=== PATIENT | female | born 1955 | race Caucasian/White ===

== ENCOUNTER → 2024-01-17 | Outpatient (CLI) | payer MEDICARE, BC, SELFPAY ==
[2024-01-17 15:06] LABS: Absolute Lymphocyte Count 1.56 X10^3/uL (0.83-4.51); Absolute Neutrophil Count 3.3 X10^3/uL (2.0-7.7); Basophil# 0.05 X10^3/uL; Basophil% 0.8 % (0-1); Eosinophil# 0.07 X10^3/uL; Eosinophils% 1.2 % (0-5); Hematocrit 42.5 % (37-47); Hemoglobin 13.8 g/dL (12.0-15.0); Lymphocyte # 1.56 X10^3/ul (0.83-4.51); Lymphocyte % 26.3 % (19-41); Mean Corp Hgb Conc 32.5 g/dL (32-36); Mean Corpuscular Volume 95.5 fL (81-99); Monocyte# 0.92 X10^3/uL; Monocyte% 15.5 % (0-10); NRBC Flagged by Analyzer 0 % (0-5); Neutrophil # 3.31 X10^3/uL (2.7-7.7); Neutrophil % 55.7 % (47-70); Platelet Count 363 K/mm3 (150-450); RBC Distribution Width CV 14.3 % (11.6-14.6); RBC Distribution Width SD 50.4 fl (35.1-43.9); Red Blood Count 4.45 M/mm3 (4.2-5.4); White Blood Count 5.9 K/mm3 (4.4-11.0)
[2024-01-17 15:43] LABS: ALB/GLOB Ratio 0.8 RATIO (0.9-2.4); AST(SGOT) 23 U/L (15-37); Alanine Aminotransfer ALT/SGPT 23 U/L (13-56); Albumin, Serum 3.7 g/dL (3.2-5.0); Alkaline Phosphatase 117 U/L (45-117); Anion Gap 10 (5-15); BUN 12 mg/dL (7-18); BUN/Creat Ratio 12.6 RATIO (10-20); Calcium,Total 9.3 mg/dL (8.5-10.1); Chloride 101 mmol/L (98-107); Creatinine, Serum 0.95 mg/dL (0.55-1.02); EST Glomerular Filtration Rate 62 mL/min (>60); Est Glom Filt Rate - Afr Amer 75 mL/min (>60); Globulin 4.4 g/dL (2.2-4.2); Glucose 134 mg/dL (74-106); Potassium 3.9 mmol/L (3.5-5.1); Protein, Total 8.1 g/dL (6.4-8.2); Sodium Level 137 mmol/L (136-145)
[2024-01-19 15:09] LABS: Carbohydrate Ag 19-9 2261 7 U/mL (0-35)
== END | disposition home or self-care (01) ==
LOC: LAB 14:07
PROVIDERS: PCP Student in an Organized Health Care Education/Training Program; Referring Provider Student in an Organized Health Care Education/Training Program; Visit Provider Student in an Organized Health Care Education/Training Program
DX: D49.0 Neoplasm of unspecified behavior of digestive system (principal); R10.9 Unspecified abdominal pain
CPT/HCPCS: 36415; 80053; 85025; 86301

== ENCOUNTER → 2024-01-19 | Outpatient (CLI) | payer MEDICARE, BC, SELFPAY ==
[2024-01-23 03:06] LABS: Pancreatic Elastase, Fecal 559 (>200)
[2024-01-24 16:10] LABS: Calprotectin, Stool 49 ug/g (0-120)
== END | disposition home or self-care (01) ==
LOC: LABSPEC 15:16
PROVIDERS: PCP Student in an Organized Health Care Education/Training Program; Referring Provider Student in an Organized Health Care Education/Training Program; Visit Provider Student in an Organized Health Care Education/Training Program
DX: K58.9 Irritable bowel syndrome, unspecified (principal); R10.9 Unspecified abdominal pain
CPT/HCPCS: 36415; 82653; 83630; 83993

== ENCOUNTER 2024-05-28 07:22 | Inpatient (IN) | payer MEDICARE, BC, MEDICAID, SELFPAY ==
--- NOTE | 2024-05-16 21:28 | PCM.HP.BLA ---
History and Physical History and Physical Patient Name: Humera Leone : 1955From:? EL WATSON PA-C DATE OF PRE-OPERATIVE EXAM: 05/16/2024 DATE OF SURGERY:? 05/28/2024 SCHEDULED PROCEDURE:? Direct anterior right total hip arthroplasty HISTORY OF PRESENT ILLNESS: Preoperative history and physical exam was performed on May 16, 2024.? This is a 68-year-old female who presented with her sister who is power of real estate associate attorney.? She has had ongoing pain for many years in the right hip.? She has history of previous knee replacement approximately 12 years ago.? Patient is currently at correction at [facility].? Patient's pain can reach 7-8/10 with activities.? Patient continues to complain of groin pain on the right.? She gets pain into her thigh.? Patient does have history of neuropathy that runs in the family.? She gets numbness in her toes which comes and goes.? Patient can perform most tasks but needs reminders and nursing staff helps with her bathing.? She is able to feed a dress herself.? Patient denies past history of surgery on her right hip.? Pain is increased with walking, going up and down steps, sitting.? Patient has attempted conservative measures including physical therapy, cold therapy, heat therapy, TENS unit with only temporary relief.? She has tried muscle relaxers and pain medications including Tylenol and tramadol.? She is currently getting tramadol from her primary care provider.? She engages in daily walking as much as she can and stationary bike.? Patient has medical history pertinent for Alzheimer's dementia, history of DVT and pulmonary embolism, anxiety, thyroid disease, history of bradycardia, heart murmur, and history of toxic metabolic encephalopathy.? Her previous left knee arthroplasty was in 2008.? She has had surgical clearance from the callisthenics instructor Dr. Guzman, primary care physician Dr. Jean.? Primary care provider has instructed the patient to stop the Eliquis 2 days prior to surgery.? We did reach out to the computer numerical control programmer in which they will not give clearance but states her TSH has been within normal limits.? She denies any recent chest pain, short of breath, fevers chills or recent infections.? She is currently on Eliquis for history of DVT and pulmonary embolism. REVIEW OF SYSTEMS: Review Of Systems: Constitutional: Denies change in appetite, fever and weight change. Cardiovasular: Reports heart murmur, but denies chest pain and irregular heartbeat. Respiratory: Reports shortness of breath, but denies cough, pneumonia, tuberculosis and wheezing. Gastrointestinal: Denies constipation, diarrhea, heartburn, nausea, rectal itching, bloody stools and vomiting. Genitourinary: Reports frequent UTIs. Musculoskeletal: Reports pain and trouble walking, but denies leg swelling and weakness. Skin: Denies Raynaud's, history of shingles and tattoo. Neurological: Denies ambulatory dysfunction, dizziness, numbness/tingling and tremor. Psychiatric: Reports anxiety, insomnia and stress. Hematologic/Lymphatic: Denies anemia, bleeding/bruising tendency and past transfusion. Reviewed, no changes. PAST MEDICAL HISTORY: Advance Care Plan: Other Directive, POA Effective Date: 01/28/2023 Resuscitation, DNR Effective Date: 01/28/2023 Past Medical History: Medical Problems: Alzheimer's, Arthritis, Dementia, Depression, History Of Blood Clots/ DVT, Pulmonary Embolism, Thyroid Disease, anxiety bradycardia - history of heart murmur, toxic metabolic encephalopathy Accidents: None Surgical Hx: Hysterectomy - 1999 Knee Replacement Lt - 2008 Anesthesia Complications: None Assistive Devices: Cane Reviewed and updated. SOCIAL HISTORY: Social History: Marital: .Occupation: Retired Retired -.Work Status: Retired.Hand Dominance: Right-handed. Personal Habits:? Cigarette Use: Never Smoked Cigarettes.Smokeless Tobacco: Never Used Smokeless Tobacco.E-Cigarette Use: Never used.Alcohol: Denies use.Drug Use: Denies Use.Enjoy Exercising: Never Exercises. Reviewed, no changes. VITALS: Ht: 66.5 Wt: 210lb Wt k.256 BMI: 33.4 BP: 128/80 Pulse: 81 Resp: 17 T: 98.0 T: 36.7C Pain Level: 7 O2SatR: 96 ALLERGIES: Penicillin V Morphine MEDICATIONS: QC Tumeric Complex 500 mg daily, Biotin 5000 mcg daily, Tramadol HCL 50 mg 1-2 by mouth every 6 hours as needed pain, Tylenol Extra Strength 500 mg 2 by mouth every 8 hours, Nystatin [id number] Unit/GM as needed, Lexapro 20 mg daily, Claritin 10 mg as needed, Eliquis 5 mg 1 by mouth twice a day, Loperamide HCL 2 mg no more than 4 tabs in 24 hours, Duloxetine HCL 60 mg 1 by mouth every day, Levothyroxine Sodium 150 mcg daily, Lidocaine 4 % may leave on for up to 12 hours, Systane 0.4-0.3 % daily, Aricept 5 mg 1 po qdaily, Vitamin D 25 mcg (1000 Ut) daily, Fluoxetine HCL 20 mg 1 by mouth every day, Simethicone 125 mg daily, Ondansetron HCL 4 mg prn PRE-OP EXAM: General appearance:NORMAL? Other: Eyes: Conjunctivae and lids: NORMAL? Pupils: ERR Ears, Nose, Mouth, and Throat: NORMAL? Other: Inspection of lips, teeth and gums: NORMAL?? Other: Neck: Examination of neck: no masses noted. Respiratory: Assessment of respiratory effort: NORMAL?? Other: ? Auscultation of lungs: clear to auscultation no wheezes, rhonchi or rales. Cardiovascular:? Auscultation of heart: regular rate and rhythm, positive systolic murmur PHYSICAL EXAMINATION: On exam patient does ambulate with antalgic gait with use of cane.? Left hip flexion 60 with obligatory external rotation, external rotation 45 and 15 internal rotation.? She has significant stiffness with the right hip.? Increased pain with range of motion.? Sensation intact to light touch. IMAGING STUDIES: Previous x-rays of the right hip reveal joint space narrowing, subchondral sclerosis, osteophyte formation consistent with severe stage IV bone on bone erosive osteoarthritis.? Patient also has severe stage IV bone on bone left hip osteoarthritis. IMPRESSION: 1.? Severe right hip osteoarthritis 2.? Alzheimer's dementia 3.? History of DVT/pulmonary embolism 4.? Thyroid disease 5.? Anxiety 6.? History of bradycardia 7.? Heart murmur 8.? History of toxic metabolic encephalopathy 9.? Obesity with BMI 33.4 PLAN: Dr. Americo Leblanc did discuss and review with the patient all treatment options including surgical versus nonsurgical options.? I will continue plan established by Dr. Americo Leblanc.? Patient does wish to proceed with the above-stated procedure.? Potential risks, benefits, and complications of the procedure were discussed in detail including but not limited to , infection, nerve and blood vessel damage, persistent pain, numbness, tingling, paresthesias, blood clot, pulmonary embolism, and requirement for possible further surgery.? The patient expressed full understanding and has no further questions for the doctor.? Patient does agree to proceed with the above-stated procedure and has signed the surgery consent form. POST-OP MEDICATION PLAN: Pain Medications: Postoperative pain regimen will be initiated by Dr. Americo Leblanc in the hospital.? We are unable to use nonsteroidal anti-inflammatories due to the anticoagulation.? We are reaching out to the primary care provider for postoperative pain management.? Patient has been getting tramadol from the PCP for pain control.? We will determine if they would like to manage the pain or orthopedics.? She will bring Walker to the hospital.? Care management team will be in place for appropriate and safe discharge planning.? Patient's sister who is power of real estate associate attorney states that she will not be returning to [facility] and will have something set up after surgery.? We discussed her dementia in which this could also be a risk for postoperative confusion.? They did voice understanding.? Patient will continue to follow our nutrition protocol. ? DVT Prophylaxis Plan: Primary care physician recommend stopping the Eliquis 2 days prior to surgery.? This will be resumed postoperative day #1.? She has history of DVT/pulmonary embolism.? We will also utilize SHERLY hose and ambulation for prevention of DVT. This dictation was created using voice recognition software. Phonetic and/or grammatical errors may exist. ___? I have re-examined the patient.? There are no clinical changes since date of exam. ___? See progress notes for changes. ___? Dictated on admission Date: ? Time: Signature:
--- NOTE | 2024-05-17 16:22 | PAT.ANESEVAL ---
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 When Was Last Pacemaker Check QUESTION #4 FULL TEXT: You/Your Family Experience fever (hyperthermia) with Anesthesia Last Oral Intake Last Oral intake: Last Oral Intake NPO since Meds taken in AM with sips of water? Meds patient instructed to take am of surgery PONV PONV - planishing hammer operator: PONV - planishing hammer operator Female Yes 05/17/24 11:11 HX of Motion Sickness No 05/17/24 11:11 HX of N/V After Surgery Yes 05/17/24 11:11 Non-Smoker Yes 05/17/24 11:11 Duration of Surgery greater Yes 05/17/24 11:11 than 60 minutes Number of Risk Factors 4 05/17/24 11:11 PONV Score Severe Risk 05/17/24 11:11 Respiratory Assessment Respiratory Assessment - planishing hammer operator: Respiratory Tract Infection Hx - planishing hammer operator Hx Respiratory Tract Infection No 05/17/24 11:11 STOP Sleep Apnea STOP Sleep Apnea - planishing hammer operator: STOP Sleep Apnea - planishing hammer operator Hx Hypertension Yes 05/17/24 11:11 Hx Sleep Apnea Yes 05/17/24 11:11 CPAP No 05/17/24 11:11 BIPAP No 05/17/24 11:11 Do you snore loudly (louder than talking or can be heard Do you often feel tired/ fatigued/ sleepy during daytime? Has anyone observed you stop breathing during sleep? STOP Results Positive 05/17/24 11:11 QUESTION #5 FULL TEXT : Do you snore loudly (louder than talking or can be heard through closed doors)? 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 Specify any problems Hx of Preganancy in last 3 N/A 05/17/24 11:11 Months Nurse Filling Out Transfusion NBUCHER 05/17/24 11:11 & Questions: Date: 05/17/24 05/17/24 11:11 Time: 11:12 05/17/24 11:11 Patient unable to answer at this time (ie. confused, unrespo /Reproduction History /Reproductive History - planishing hammer operator: /Reproductive Hx- planishing hammer operator Hx Now No 05/17/24 11:11 Gestational Age (in weeks): EDC: Hx Hx Para Hx Section SAB No 05/17/24 11:11 [facility] Medical History (Updated 05/17/24 @ 11:23 by Pilar Genao) Wears glasses Walker as ambulation aid Hypertension History of echocardiogram Cardiology follow-up encounter Post-menopausal History of Clostridium difficile infection Depression Anxiety Thyroid disease Uses wheelchair Ambulates with cane Arthritis Fatty liver Pulmonary embolism DVT (deep venous thrombosis) Back pain Heartburn Non-smoker Asthma COPD (chronic obstructive pulmonary disease) Shortness of breath on exertion Leg cramps History of pain when walking History of sick sinus syndrome History of rheumatic fever Allergic rhinitis Weakness Bradycardia Essential hypertension Obstructive sleep apnea Insomnia Alzheimer disease Dementia Hyperlipidemia Hypothyroidism Other toxic encephalopathy Home Medications ?Medication ?Instructions ?Recorded ?Last Taken ?Type acetaminophen 325 mg capsule 325 mg PO BID PRN pain 01/05/24 Unknown History acetaminophen 500 mg tablet 500 mg PO BID 01/05/24 Unknown History apixaban 5 mg tablet (Eliquis) 5 mg PO BID 01/05/24 Unknown History cholecalciferol (vitamin D3) 25 25 mcg PO DAILY 01/05/24 Unknown History mcg (1,000 unit) capsule (Vitamin D3) donepezil 5 mg tablet 5 mg PO DAILY 01/05/24 Unknown History loratadine 10 mg tablet 10 mg PO DAILY 01/05/24 Unknown History (Allerclear) peg 400-propylene glycol (PF) 0.4 2 drp RIGHT EYE BID 01/05/24 Unknown History %-0.3 % eye drops in a dropperette (Systane (PF)) tramadol 50 mg tablet 50 mg PO BID 01/05/24 Unknown History levothyroxine 150 mcg tablet 150 mcg PO DAILY 03/01/24 Unknown History fluoxetine 20 mg capsule 20 mg PO DAILY 05/17/24 Unknown History simethicone 125 mg capsule (Gas 125 mg PO 4X/DAY 05/17/24 Unknown History Relief (simethicone)) Allergy/AdvReac Type Severity Reaction Status Date / Time morphine Allergy Unknown Other Verified 05/17/24 11:10 Penicillins Allergy Unknown Other Verified 05/17/24 11:10 Surgical History History of cardiac catheterization History of left knee replacement History of hysterectomy Social History Smoking Status: Never smoker Audit: Pertinent Findings Pertinent Findings EKG Perinent findings: May 11, 2024. Normal sinus rhythm. Echo (EF%) pertinent findings: January 12, 2024. Ejection fraction is 55 to 60%. No regional wall motion abnormality seen. No aortic stenosis seen. Consult pertinent findings: February 16, 2024. 1. Abnormal stress test-status post heart cath. Patient essentially had a false positive stress test. 2. Preop exam-patient is cleared from a cardiac standpoint. Recommendation Anesthesia Recommendation Anesthesia recommendation: OPTIMIZED for anesthesia
[2024-05-28] VITALS (16 sets, daily range): BP systolic 116–170; BP diastolic 66–100; PULSE 78–103; RESP 6–18; TEMP 36.4–37.3; O2SAT 4–99; BMI 33.0
[2024-05-28] MEDS: Lactated Ringers 1,000 ML 999 ML IV (08:36)
[2024-05-28] MEDS: Gabapentin 600 MG Tablet PO (08:36)
[2024-05-28] MEDS: Acetaminophen 500 MG Tablet 1000 MG PO ×2 (08:36→22:25)
[2024-05-28] MEDS: Celecoxib 200 MG Capsule 400 MG PO (08:36)
[2024-05-28 09:25] LABS: Magnesium 2.2 mg/dL (1.5-2.2)
--- NOTE | 2024-05-28 09:55 | PCM.PRE.AN2 ---
ASA Classification* ASA Classification ASA Classification: 3 Assessment & Plan Anesthesia* Anesthesia Assessment Anesthesia Assessment: Discussed sedation and/or anesthesia options, risks, benefits, and alternatives with patient/parents/legal guardian/POA. Questions invited. The patient/parents/legal guardian/POA seems to understand and agrees to proceed with anesthesia plan. Reviewed the physical assessment, medical history, allergy history and patient home medications list prior to surgery/procedure/anesthetic and documented any changes. Performed airway and anesthesia risk assessments. Anesthesia Type Anesthesia Type: General History Source History Obtained from:: Patient and Chart Anesthesia Focused Assessment* Temperature: 99.1 F Pulse Rate: 83 Blood Pressure: 126/77 Respiratory Rate: 17 Pulse Ox: 96 Oxygen Delivery Method: Room Air Airway Assessment Mouth opens: >3 cm Mallampati Score: I Teeth Condition: Intact Neck Range of motion (ROM): Limited ROM (Slight decrease in extension) Focused Labs Anesthesia Preop lab: CBC WBC 5.9 K/mm3 (4.4-11.0) 01/17/24 14:12 01/17/24 RBC 4.45 M/mm3 (4.2-5.4) 01/17/24 14:12 01/17/24 Hgb 13.8 g/dL (12.0-15.0) 01/17/24 14:12 01/17/24 Hct 42.5 % (37-47) 01/17/24 14:12 01/17/24 Plt Count 363 K/mm3 (150-450) 01/17/24 14:12 01/17/24 CHEMISTRY Potassium 3.9 mmol/L (3.5-5.1) 01/17/24 14:12 01/17/24 Sodium 137 mmol/L (136-145) 01/17/24 14:12 01/17/24 Magnesium 2.2 mg/dL (1.5-2.2) 05/28/24 08:21 05/28/24 BUN 12 mg/dL (7-18) 01/17/24 14:12 01/17/24 Creatinine 0.95 mg/dL (0.55-1.02) 01/17/24 14:12 01/17/24 Glucose 134 mg/dL (74-106) H 01/17/24 14:12 11/05/24 COAG Pre-Assessment Diagnosis/Proposed Procedure Planned Operative Procedure(s): ANTERIOR RIGHT TOTAL HIP ARTHROPLASTY Anesthesia History 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 When Was Last Pacemaker Check QUESTION #4 FULL TEXT: You/Your Family Experience fever (hyperthermia) with Anesthesia Last Oral Intake Last Oral intake: Last Oral Intake NPO since 05:00 05/28/24 08:31 Meds taken in AM with sips of water? Meds patient instructed to take am of surgery Any additional information?: Yes NPO since: 00:00 PONV PONV - jet blade polisher: PONV - jet blade polisher Female Yes 05/17/24 11:11 HX of Motion Sickness No 05/17/24 11:11 HX of N/V After Surgery Yes 05/17/24 11:11 Non-Smoker Yes 05/17/24 11:11 Duration of Surgery greater Yes 05/17/24 11:11 than 60 minutes Number of Risk Factors 4 05/17/24 11:11 PONV Score Severe Risk 05/17/24 11:11 Height & Weight Height & Weight: Anesthesia: Height & Weight Height 5 ft 7 in 05/28/24 08:31 Weight: 95.7 kg 05/28/24 08:31 Body Mass Index (BMI) 33.0 05/28/24 08:31 Respiratory Assessment Respiratory Assessment - jet blade polisher: Respiratory Tract Infection Hx - jet blade polisher Hx Respiratory Tract Infection No 05/17/24 11:11 STOP Sleep Apnea STOP Sleep Apnea - jet blade polisher: STOP Sleep Apnea - jet blade polisher Hx Hypertension Yes 05/17/24 11:11 Hx Sleep Apnea Yes 05/17/24 11:11 CPAP No 05/17/24 11:11 BIPAP No 05/17/24 11:11 Do you snore loudly (louder than talking or can be heard Do you often feel tired/ fatigued/ sleepy during daytime? Has anyone observed you stop breathing during sleep? STOP Results Positive 05/17/24 11:11 QUESTION #5 FULL TEXT : Do you snore loudly (louder than talking or can be heard through closed doors)? 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 Specify any problems Hx of Preganancy in last 3 N/A 05/17/24 11:11 Months Nurse Filling Out Transfusion NBUCHER 05/17/24 11:11 & Questions: Date: 05/17/24 05/17/24 11:11 Time: 11:12 05/17/24 11:11 Patient unable to answer at this time (ie. confused, unrespo /Reproduction History /Reproductive History - jet blade polisher: /Reproductive Hx- jet blade polisher Hx Now No 05/17/24 11:11 Gestational Age (in weeks): EDC: Hx Hx Para Hx Section SAB No 05/17/24 11:11 Active Medications Active Medications: Current Medications Generic Name Dose Route Start Last Admin Trade Name Freq PRN Reason Stop Dose Admin Acetaminophen 1,000 mg 05/28/24 10:00 05/28/24 08:36 Acetaminophen 500 Mg Tablet PO 05/28/24 10:01 1,000 mg X1 ONE Administration Acetaminophen 1,000 mg 05/28/24 14:00 Acetaminophen 500 Mg Tablet PO Q8 CHRIS Apixaban 5 mg 05/29/24 07:00 Apixaban 5 Mg Tablet PO BID CHRIS Celecoxib 400 mg 05/28/24 10:00 05/28/24 08:36 Celecoxib 200 Mg Capsule PO 05/28/24 10:01 400 mg X1 ONE Administration Tranexamic Acid 2,000 mg/ 0 mg 05/28/24 10:00 Sodium Chloride 100 ml OPERA.SITE 05/28/24 10:01 X1 ONE Sodium Chloride 77.4 ml/ 0 ml 05/28/24 10:00 Ropivacaine 200 mg/ OPERA.SITE 05/28/24 10:01 Epinephrine HCl 0.6 mg/ X1 ONE Ketorolac Tromethamine 30 mg/ Morphine Sulfate 5 mg Dexamethasone Sodium Phosphate 10 mg 05/28/24 10:00 Dexamethasone 10 Mg/Ml Vial IV 05/28/24 10:01 X1 ONE Doxycycline Monohydrate 100 mg 05/29/24 13:00 Doxycycline 100 Mg Capsule PO BID [facility] Enteral Nutritional Formula 237 ml 05/28/24 08:00 Ensure Surgery 237 Ml Liquid PO TIDCM [facility] Famotidine 20 mg 05/28/24 10:00 Famotidine 20 Mg Tablet PO DAILY [facility] Gabapentin 600 mg 05/28/24 10:00 05/28/24 08:36 Gabapentin 600 Mg Tablet PO 05/28/24 10:01 600 mg X1 ONE Administration Lactated Ringer's 1,000 mls @ 999 mls/hr 05/28/24 10:00 05/28/24 08:36 IV 05/28/24 11:00 999 mls/hr .Q1H1M CHRIS Administration Cefazolin Sodium 2 gm/ N/A 20 mls @ 400 mls/hr 05/28/24 10:00 IV 05/28/24 10:02 PREOP ONE Cefazolin Sodium 1 gm in 50 mls @ 150 mls/hr 05/28/24 14:00 IV 05/28/24 22:19 Q8 [facility] Insulin Human Lispro 1 - 6 unit 05/28/24 10:00 Insulin Lispro 100 Unit/Ml Insuln.Pen SC Q4H PRN PRN BG>/= 180, SEE PROTOCOL Protocol Ketorolac Tromethamine 15 mg 05/28/24 07:21 Ketorolac 15 Mg/Ml Vial IV 05/30/24 07:24 Q6H PRN PRN Pain Score 1-5 Meloxicam 7.5 mg 05/30/24 10:00 Meloxicam 7.5 Mg Tablet PO BID [facility] Morphine Sulfate 2 - 4 mg 05/28/24 07:21 Morphine 2 Mg/Ml Syringe IV Q2H PRN PRN Pain Score 4-10 Ondansetron HCl 4 mg 05/28/24 07:21 Ondansetron 4 Mg/2 Ml Vial IV Q8H PRN PRN NAUSEA Oxycodone HCl 5 - 10 mg 05/28/24 07:21 Oxycodone 5 Mg Tablet PO Q4H PRN PRN Pain Score 4-10 Promethazine HCl 12.5 mg 05/28/24 07:21 Promethazine 25 Mg/Ml Syringe IM Q6H PRN PRN NAUSEA/VOMITING Protocol Senna/Docusate Sodium 2 tablet 05/28/24 10:00 Senna/Docusate Sodium 1 Tablet PO BID [facility] Medical History Wears glasses Walker as ambulation aid Hypertension History of echocardiogram Cardiology follow-up encounter Post-menopausal History of Clostridium difficile infection Depression Anxiety Thyroid disease Uses wheelchair Ambulates with cane Arthritis Fatty liver Pulmonary embolism DVT (deep venous thrombosis) Back pain Heartburn Non-smoker Asthma COPD (chronic obstructive pulmonary disease) Shortness of breath on exertion Leg cramps History of pain when walking History of sick sinus syndrome History of rheumatic fever Allergic rhinitis Weakness Bradycardia Essential hypertension Obstructive sleep apnea Insomnia Alzheimer disease Dementia Hyperlipidemia Hypothyroidism Other toxic encephalopathy Home Medications ?Medication ?Instructions ?Recorded ?Last Taken ?Type acetaminophen 325 mg capsule 325 mg PO BID PRN pain 01/05/24 05/27/24 History acetaminophen 500 mg tablet 500 mg PO BID 01/05/24 05/27/24 History apixaban 5 mg tablet (Eliquis) 5 mg PO BID 01/05/24 Unknown History cholecalciferol (vitamin D3) 25 25 mcg PO DAILY 01/05/24 05/27/24 History mcg (1,000 unit) capsule (Vitamin D3) donepezil 5 mg tablet 5 mg PO DAILY 01/05/24 05/27/24 History loratadine 10 mg tablet 10 mg PO DAILY 01/05/24 Unknown History (Judah) peg 400-propylene glycol (PF) 0.4 2 drp RIGHT EYE BID 01/05/24 05/27/24 History %-0.3 % eye drops in a dropperette (Systane (PF)) tramadol 50 mg tablet 50 mg PO BID 01/05/24 05/27/24 History levothyroxine 150 mcg tablet 150 mcg PO DAILY 03/01/24 05/27/24 History fluoxetine 20 mg capsule 20 mg PO DAILY 05/17/24 05/27/24 History simethicone 125 mg capsule (Gas 125 mg PO 4X/DAY 05/17/24 05/27/24 History Relief (simethicone)) donepezil 10 mg tablet 5 mg PO DAILY 05/28/24 05/27/24 History Allergy/AdvReac Type Severity Reaction Status Date / Time morphine Allergy Unknown Other Verified 05/17/24 11:10 Penicillins Allergy Unknown Other Verified 05/17/24 11:10 Surgical History History of cardiac catheterization History of left knee replacement History of hysterectomy Social History Smoking Status: Never smoker Review of Systems (Anesthesia) ROS Narrative System reviewed and no additional complaints, except as documented.
--- NOTE | 2024-05-28 10:00 | FEM._PTH ---
PATIENT: KWABENA SANCHEZ LOC: [facility] U#:[id number] AGE/SX: 68/F ROOM: [facility] RE05/29/[address]: Dr. Alexandru Holley DO : 1955 BED: 1 DIS: 05/30/2024 SPEC #: [id number] RECD: 05/29/24 10:14 STATUS: CORA REQ #: [id number] VINH: 05/28/24 10:[address]: Americo Leblanc DEPT: SURGICAL PATHOLOGY RECD BY: Jairo Vásquez ENTERED: 05/29/24 10:15 SP TYPE: FEM HEAD OTHR DR: DO Dr. Alexandru Patel DO Dr. Rohini Kalisetti, MD Tissues: A - Hip, NOS Procedures: Decalcification bone/plaque Surgery Specimen Level III Comments: @ Ordering doctor for DEC edited from to @ by ANTONIO at 05/29/24 1016 @ Ordering doctor for SUIV edited from to @ by ANTONIO at 05/29/24 1016 @ Ordering doctor for SUV edited from to @ by ANTONIO at 05/29/24 1016 @ Submitting doctor edited from to @ by ANTONIO at 05/29/24 1016 HEADER OPERATION: ERAS, anterior right total hip arthroplasty PRE-OP DIAGNOSIS: Severe right hip osteoarthritis TISSUE SUBMITTED: A- Right femoral head MICROSCOPIC DIAGNOSIS A. Femoral head, right, total hip arthroplasty: * Articular bone with reactive/degenerative changes. * Trilineage hematopoiesis. MICROSCOPIC DESCRIPTION Slides are reviewed. GROSS DESCRIPTION A. Received in fixative is one container labeled with the patient's name and designated Right femoral head. The specimen consists of a femoral head measuring 5.5 x 5.5 x 4.5cm. The cartilaginous surface is worn and eburnated. Also present in the container are multiple fragments of bone measuring 6 x 8 x 2.3cm in aggregate. Acute Care Nursing Assistant sections of the femoral head and will be submitted after decalcification in two cassettes. Christin 05/29/2024 CPT:[id number]
[2024-05-28] MEDS: Ipratropium/Albuterol Sulfate 3 ML AMPUL.NEB INHALATION (10:05)
--- NOTE | 2024-05-28 10:15 | PCM.POST.ANE ---
Anesthesia: Postop Eval I Current Vital Signs Temperature: 97 F Pulse Rate: 64 Blood Pressure: 111/69 Respiratory Rate: 16 Pulse Ox: 100 Oxygen Delivery Method: Room Air Assessment Airway patent: Yes Spontaneous unlabored respirations: Yes Mental status: Awake and Calm nausea: No Vomiting: No Anesthesia Complication: No Fluid Hydration Crystalloid volume administer (ml): 1,500 Total IV fluid infused: 1,500 Progress Note Anesthesia document: Postop Eval 1 completed: Yes
[2024-05-28 10:16] LABS: Bedside Glucose 124 mg/dL (74-106)
[2024-05-28] MEDS: Magnesium 1 GM over 15 mins IV (10:17)
[2024-05-28] MEDS: Lactated Ringers 1,000 ML 15 ML IV (10:18)
[2024-05-28] MEDS: Cefazolin 2 GM in Syringe 10 ML IV (10:48)
[2024-05-28] MEDS: dexAMETHasone 10 MG/ML Vial IV (10:48)
--- NOTE | 2024-05-28 11:30 | RAD_ITS ---
PROCEDURE: HIP, UNI W/ PELVIS 2-3 VIEWS 05/28/2024 REASON FOR EXAM: TOTAL HIP ANTERIOR APPROACH RT TECHNIQUE: Intraoperative fluoroscopy with 4 intraoperative spot views FINDINGS: Fluoro time 11.3 seconds Cumulative dose 1.82 mGy Right total hip replacement appears anatomic alignment without fracture or dislocation identified. RAD/HIP, UNI W/ Pelvis 2-3 Views IMPRESSION: Intraoperative fluoroscopy with spot views as above. Reading Location: [id number]
--- NOTE | 2024-05-28 11:53 | OP.PCM_ITS ---
Operative Report (Standard) Operative Information Date of Procedure: 05/28/24 Pre-Operative Diagnosis: Right hip primary osteoarthritis Post-Operative Diagnosis: Right hip primary osteoarthritis Surgery/Procedure Performed: Right direct anterior minimally invasive total hip replacement pharmacy informatics specialist: Yes Theatrical Rigger: April Helm Tasks completed by first press operator: Other (See body of operative report) Additional therapeutic recreation assistant?: No Type of Anesthesia: General RN Documented Start/Stop Times: Operation Date: 05/28/24 10:00 Case Time Into Pre-Op 05/28/24 07:56 Anesthesia Start 05/28/24 10:42 Into Room 05/28/24 10:42 Procedure Start 05/28/24 11:04 Procedure End 05/28/24 13:27 Anesthesia End 05/28/24 13:29 Out of Room 05/28/24 13:29 Procedure Start Time: 11:04 Procedure Stop Time: 13:27 Select all DRAINS/GRAFTS/IMPLANTS that apply: Prosthetic device Prosthetic device details: See body of operative report Special Medications: Ancef Estimated Blood Loss: 300 ML Fluids Replaced: 500 mL crystalloid Specimen collected: Yes Description of specimen(s) removed: Bony cuts Description of surgery: Components used: 1. Insignia Cherelle femoral stem size 3 high offset 2. [place] trident 2 acetabular shell size 52 mm 3. [place] X3 polyethylene 42E 4. [place] Biolox delta 28 mm, -4 mm femoral head 5. MDM cobalt-chromium metal liner alpha code E Brief history operative indications: 68 yo F who failed conservative measures for their hip osteoarthritis. X-rays were consistent with osteoarthritis including joint space narrowing, osteophyte formation and subchondral cysts. Total hip replacement was discussed with the patient with risks and benefits including but not limited to blood loss, DVTs, PEs, neurovascular damage, dislocation, general risks of anesthesia including loss of life. Patient demonstrated an understanding medical clearance is obtained the patient was consented for surgery. Procedure: On the date of procedure the patient's R hip was marked in the preoperative area. Patient was then taken back to the operating room where anesthesia assumed control of the C-spine and airway and administered anesthetic. Patient was transferred to the operating table and placed in the supine position. The hips were placed at the break of the bed and a sacral bump was placed. The R lower extremity was then prepped out in a sterile fashion using chlorhexidine while the surgeon scrubbed. The PA was vital in the positioning of the patient. Upon reentering the room the R lower extremity was draped in the standard orthopedic fashion and the incision was marked. A timeout was called and everyone agreed upon the side, the site, the procedure be performed, antibody given, and patient's identity. At this time incision was made through skin, subcutaneous tissue, and fat down to fascia. The fascia was then incised and the TFL was retracted laterally. A retractor was placed on the lateral border of the femoral neck. Attention was directed to the inferior portion of the approach and all crossing vessels were identified and appropriately coagulated. A retractor was then placed on the medial portion of the femoral neck. The anterior capsule was then cleared of all soft tissue and then H shaped capsulotomy was made. The retractors were then placed inside the capsule. The femoral neck was identified and a cleanup cut was made. At this time a power corkscrew was used to remove the femoral head. Attention was then turned toward the acetabulum where the soft tissues were appropriately retracted and the acetabulum was sequentially reamed to 52 mm. A 52 mm cup was then selected and impacted into place. Acetabular liner was impacted into place and locking mechanism was verified. The position of the acetabular cup was then verified under live fluoroscopy. Attention was then turned to the femur. Soft tissue releases on the medial and lateral femoral neck were appropriately done, the leg was externally rotated and lateralized. A Nair retractor was placed medially and proximally to the greater trochanter this allowed appropriate visualization and exposure of the femoral canal. Rongeour was then used to remove excess lateral bone. A canal finder and entry broach were used to open the proximal canal. Once we verified we were down the femoral canal we subsequently broached up to a size 3 femur. The appropriate neck was placed in the previously selected head was trialed with a -4 mm neck. Traction was pulled and the hip was reduced with internal rotation. Once it was appropriately reduced and stability was checked. There was minimal shuck, equal leg lengths and appropriate stability with hyperextension and external rotation as well as with 90? flexion and internal rotation. Fluoroscopy was then also used to verify the position of the components and leg lengths using the contralateral side for comparison. The trial components were then dislocated the proximal femur was again exposed and the components were removed from the wound. The final components were verified and opened. The wound was copiously irrigated out with normal saline. The acetabulum was checked for any residual debris. The final components were placed and impacted. Traction and internal rotation were again used to reduce the hip. After adequate reduction the hip remained stable with appropriate leg lengths. The final components were once again checked with live fluoroscopy and were found to be satisfactory. The wound was then copiously irrigated with normal saline once more, and hemostasis was obtained. Closure was then done using #1 Vicryl runner to close the fascia. A 2-0 vicryl interuppted sutures were used to close the subcutaneous skin. A 3-0 Monocryl and Steri-Strips were used for final skin closure. A Silverlon dressing was placed. Patient was awakened by anesthesia and transferred to the [facility]. Patient was then transferred to the PACU for recovery. Postoperative plan: Patient will get 24 hours postop antibiotics. Patient will get in-house physical therapy and will be weight-bear as tolerated. Patient will follow up in office in 2 weeks for a wound check and x-rays. Patient will resume Eliquis tomorrow for DVT prophylaxis. Patient is institutionalized and is staph positive we will place her on doxycycline 100 mg p.o. twice daily for 2 weeks postoperatively. During the course of the procedure the physician gaming associate (PE) played a vital role. Their intimate knowledge of my steps in the procedure aided in safe and expedient completion of the procedure. The PE played a vital rolls in positioning particularly in obtaining the appropriate positioning of the sacral bump. The PE was also vital in the retraction of soft tissues during the exposure and especially the femoral work as this is a vital part of the procedure to prevent complications and fractures. The PE was also vital and protecting soft tissues during times of bony cuts and reaming. He also played a vital role in closure with my direct supervision. The PE was also important during reduction and dislocation of the joint and trials intraoperatively. Surgical Findings: Stable hip with equal leg length. Complications Complications: No Admit VTE Documentation VTE Present on Admission: No VTE Mechan Device Prophylaxis: SCD's and Thigh High SHERLY Hose VTE Pharm Prophylaxis ordered?: Yes
[2024-05-28] MEDS: JPS (Morphine 10mg/ml) OPERA.SITE (12:00)
[2024-05-28] MEDS: TRANEXAMIC ACID 2,000 MG, 0.9% Normal Saline (100mL Bag) 100 ML OPERA.SITE (12:00)
--- NOTE | 2024-05-28 13:30 | RAD_ITS ---
PROCEDURE: HIP MIN 2 VIEWS (PORTABLE) 05/28/2024 REASON FOR EXAM: POST OP TECHNIQUE: Two-view postoperative right hip to include a low centered AP pelvis COMPARISON: Intraoperative study of 05/28/2024. RAD/Hip Min 2 Views (Portable) IMPRESSION: Moderate left hip joint degenerative changes are seen, with moderately severe l eft superior joint space narrowing. A right total hip prosthesis is now in place, with satisfactory alignment. No complication is seen. No fracture site is evident. Reading Location: [id number]
--- NOTE | 2024-05-28 13:34 | PCM.POST.ANE ---
Anesthesia: Postop Eval I Current Vital Signs Temperature: 98.2 F Pulse Rate: 96 Blood Pressure: 170/96 Respiratory Rate: 18 Pulse Ox: 94 Oxygen Delivery Method: Room Air Assessment Airway patent: Yes Spontaneous unlabored respirations: Yes Mental status: Awake nausea: No Vomiting: No Anesthesia Complication: No Fluid Hydration Crystalloid volume administer (ml): 500 (1,000 mL administered in pre-op) Total IV fluid infused: 500 Progress Note Anesthesia document: Postop Eval 1 completed: Yes
--- NOTE | 2024-05-28 15:30 | PCM.CONS.GEN ---
Assessment & Plan Assessment/Plan (1) Status post total hip replacement, right: (2) History of venous thromboembolism: PLAN: Plan Patient is a 68-year-old female who presented to [facility] on 05/28/2024 for planned right total hip replacement. Medicine consulted postoperatively for medical management. 1. Right hip primary osteoarthritis ? Orthopedic surgery primary. S/p right total hip replacement on 05/[address] Leblanc. Tolerated procedure well, no intraoperative complications. Follow-up a.m. CBC and BMP. Pain control and further management per orthopedics. PT/OT/case management consulted. 2. History of VTE ? Unclear on specific history regarding this, unable to find in chart. Okay to resume home Eliquis this evening per orthopedics. 3. Mild acute toxic encephalopathy ? Patient with some cognitive slowing, pinpoint pupils and mildly decreased respiration rate postoperatively suspected secondary to doses of IV Dilaudid given in PACU. Protecting airway without issue. Will continue to monitor closely and avoid further sedating medications as able. No need for Narcan at this time. 4. Reported dysuria ? Patient lives in shelter and apparently was reporting dysuria over the past few days. Afebrile and hemodynamically stable postoperatively. UA ordered, will follow-up. Chronic medical conditions: ? Class I obesity: BMI 33 on admit. Complicates hospital course, care and prognosis. ? Alzheimer's dementia: Stable. Continue home donepezil. ? Anxiety/depression: Stable. Continue home fluoxetine. ? Hypothyroidism: Continue home Synthroid. ? Seasonal allergies: Continue home loratadine. ? Recent history of IPMNs: Follows with outpatient GI. No inpatient needs, continue outpatient follow-up. DVT prophylaxis: Not indicated, on therapeutic Eliquis Total clinical time spent by myself addressing the patient's medical issues, reviewing all the data, and collaborating with patient's care team: 35 minutes. HPI Consult Data Date of Consult: 05/28/24 HPI Narrative Reason for Consultation: Postoperative medical management HPI Narrative: KWABENA SANCHEZ, is a 68 F who presented to [facility] on 05/28/2024 for planned orthopedic procedure. Medicine consulted postoperatively for medical management. Patient had right direct anterior minimally invasive total hip replacement done with Dr. Leblanc today. Tolerated procedure well, no intraoperative complications. Saw patient at bedside this afternoon after procedure, legal guardian present. Patient was sitting back comfortably in bed and in no acute distress. She did appear to have some cognitive slowing but was making appropriate eye contact and answering questions with short appropriate responses. She notably was given doses of IV Dilaudid in PACU and had pinpoint pupils on my evaluation with her. Her respiration rate was slightly slowed but she was protecting her airway without issue. She was eating an icee slowly during our encounter without issue. She denied any acute pain or discomfort currently. Guardian did note that she has been reporting dysuria for the past few days at the facility and has not had a UA drawn to this point. No other acute concerns at this time. [facility] Medical History Wears glasses Walker as ambulation aid Hypertension History of echocardiogram Cardiology follow-up encounter Post-menopausal History of Clostridium difficile infection Depression Anxiety Thyroid disease Uses wheelchair Ambulates with cane Arthritis Fatty liver Pulmonary embolism DVT (deep venous thrombosis) Back pain Heartburn Non-smoker Asthma COPD (chronic obstructive pulmonary disease) Shortness of breath on exertion Leg cramps History of pain when walking History of sick sinus syndrome History of rheumatic fever Allergic rhinitis Weakness Bradycardia Essential hypertension Obstructive sleep apnea Insomnia Alzheimer disease Dementia Hyperlipidemia Hypothyroidism Other toxic encephalopathy Home Medications ?Medication ?Instructions ?Recorded ?Last Taken ?Type acetaminophen 325 mg capsule 325 mg PO BID PRN pain 01/05/24 05/27/24 History acetaminophen 500 mg tablet 500 mg PO BID 01/05/24 05/27/24 History apixaban 5 mg tablet (Eliquis) 5 mg PO BID 01/05/24 Unknown History cholecalciferol (vitamin D3) 25 25 mcg PO DAILY 01/05/24 05/27/24 History mcg (1,000 unit) capsule (Vitamin D3) donepezil 5 mg tablet 5 mg PO DAILY 01/05/24 05/27/24 History loratadine 10 mg tablet 10 mg PO DAILY 01/05/24 Unknown History (Judah) peg 400-propylene glycol (PF) 0.4 2 drp RIGHT EYE BID 01/05/24 05/27/24 History %-0.3 % eye drops in a dropperette (Systane (PF)) tramadol 50 mg tablet 50 mg PO BID 01/05/24 05/27/24 History levothyroxine 150 mcg tablet 150 mcg PO DAILY 03/01/24 05/27/24 History fluoxetine 20 mg capsule 20 mg PO DAILY 05/17/24 05/27/24 History simethicone 125 mg capsule (Gas 125 mg PO 4X/DAY 05/17/24 05/27/24 History Relief (simethicone)) donepezil 10 mg tablet 5 mg PO DAILY 05/28/24 05/27/24 History Allergy/AdvReac Type Severity Reaction Status Date / Time morphine Allergy Unknown Other Verified 05/17/24 11:10 Penicillins Allergy Unknown Other Verified 05/17/24 11:10 Surgical History History of cardiac catheterization History of left knee replacement History of hysterectomy Social History Smoking Status: Never smoker ROS Constitutional Constitutional: Denies chills, fatigue, fever(s) or weakness Eyes Eyes: Denies change in vision Cardiovascular Cardiovascular: Denies chest pain Respiratory/Chest Respiratory/Chest: Denies shortness of breath at rest Gastrointestinal Gastrointestinal: Denies abdominal pain Genitourinary Genitourinary: Reports dysuria Musculoskeletal Musculoskeletal: Denies arthralgias or myalgias Physical Exam Const alert and no apparent distress Constitutional Narrative: Elderly female, class I obesity, alert and oriented to person but not place or time, mild cognitive slowing noted but otherwise sitting back comfortably in bed, making appropriate eye contact and answering questions with short appropriate responses. General Appearance: cooperative and comfortable HEENT normocephalic, head/scalp atraumatic, hearing grossly normal bilaterally, nasal mucous membranes and turbinates normal and moist oral mucous membranes Eyes PERRL, EOMs intact bilaterally and conjunctivae normal Eyes Narrative: Pinpoint pupils noted. Neck full ROM Chest inspection of chest normal Resp normal respiratory effort, normal air movement, no use of accessory muscles and clear to auscultation bilaterally Cardio regular rate, regular rhythm, no murmurs and peripheral pulses 2+ throughout GI normal to inspection, nondistended, normoactive bowel sounds, soft to palpation, non-tender and non-distended Back/Spine normal ROM Extremity Extremity Narrative: Right hip with dressing and ice pack in place. Skin no rashes or lesions noted Neuro moves all extremities and no focal motor deficits Lab / Micro Data Labs: Laboratory Results - last 24 hr 05/28/24 08:16: POC Glucose 124 H 05/28/24 08:21: Magnesium 2.2 Imaging Radiology Impression Hip X-Ray 05/28/24 13:30 IMPRESSION: Moderate left hip joint degenerative changes are seen, with moderately severe left superior joint space narrowing. A right total hip prosthesis is now in place, with satisfactory alignment. No complication is seen. No fracture site is evident. Reading Location: [id number] Charges/Coding Visit Charges Inpatient E&M: 98687 Subs Hosp L2
--- NOTE | 2024-05-28 15:54 | CASEMGMT ---
Social Work- SW met with pt sister, Beckie, per request. SW introduced self and role. Beckie reports that pt was at [facility], but they do not wish for her to return. FOC is U. Alternate is [facility] if they can provide a private room. Beckie reports that the long-term plan is for pt to rehab and eventually transfer to SNF in [place] where son lives. Short-term goal is rehab with intermediate placement at [facility] until pt can travel. SW provided education on transports costs outside [facility] radius; Beckie reports that family would cover expense if [facility] would not pickler helper expense. SW provided education on referral process. Beckie reports that pt has been forgetful for ten years, but had significant decline in mentation after pt stopped taking her thyroid medication for a year resulting in pt becoming unconscious and laying in her own feces and urine for three days prior to someone finding her. Pt was reported to suffer from brain damage due to the metabolic encephalopathy suffered during that episode. Pt will 'cover' with dismissive comments or excuses so that others do not immediately realize cognitive issues. Beckie reports that pt doesn't make good choices, which has led to sister and son seeking legal guardianship (in process). Beckie reports that pt will often claim she doesn't feel well and, therefore, cannot participate in therapy so that she can stay in bed. Beckie reports that pt often will try to get up independently. SW advised bedside nurse. SW updated bedside nurse on pt sister's concerns. SW to complete referrals following therapy. SHELBIE Neumann
--- NOTE | 2024-05-28 17:28 | VDLE_ITS ---
Reason For Study Reason For Study: PAIN RIGHT LEFT GSV is normal. GSV is normal. CFV is compressible, spontaneous, phasic, competent CFV is compressible, spontaneous, phasic, competent, and demonstrates normal augmentation. and demonstrates normal augmentation. FV is compressible, spontaneous, phasic, competent FV is compressible, spontaneous, phasic, competent and demonstrates normal augmentation. and demonstrates normal augmentation. POP V is compressible, spontaneous, phasic, competent T/P Trunk is compressible. and demonstrates normal augmentation. PTV is compressible. T/P Trunk is compressible. LT PerV is compressible. PTV is compressible. POP V is compressible with normal flow. Vessel king RT PerV is compressible. are thickened C/W previous DVT. Procedure This is a venous duplex using B-mode, color flow and spectral Doppler. Exam performed portable in patient room. The study was technically difficult. A preliminary report was called and/or faxed to [facility]. VL/Venous Duplex US - Irineo Extrem Interpretation Summary Deep veins of the lower extremities are bilaterally patent and compressible seg mentally. There is no evidence of deep vein thrombosis on either side. Valvular competence appears intact within the p roximal deep venous systems bilaterally. The great saphenous veins appear bilaterally patent and compressible segmentall y. The left popliteal vein demonstrates vein wall thickening, which is suggestive of a prior episode of deep vein throm bosis. Ordering Physician: Americo Leblanc Referring Physician: Americo Leblanc Performed By: Julia Hicks, VINCECS, RVT
--- NOTE | 2024-05-28 17:58 | POSTOPAN2_ITS ---
Anesthesia Postop Eval I Sum Postop Eval Completion status Anesthesia document: Postop Eval 1 completed: Yes Anesthesia Postop Eval I Summary Anesthesia Postop Eval I Summary: Anesthesia Postop Eval I: Assessment Summary Airway patent Yes 05/28/24 13:35 RETIREMENT ACTUARY.SKOBY Spontaneous unlabored Yes 05/28/24 13:35 RETIREMENT ACTUARY.SKOBFabi respirations Mental status Awake 05/28/24 13:35 RETIREMENT ACTUARY.SKOBY nausea No 05/28/24 13:35 RETIREMENT ACTUARY.SKOBY Vomiting No 05/28/24 13:35 RETIREMENT ACTUARY.SKOBY Anesthesia Postop Eval I: Fluid Summary Crystalloid volume administer 500 - 1,000 mL 05/28/24 13:35 RETIREMENT ACTUARY.SKOBY (ml) administered in pre-op Colloids volume administered ( ml) Blood Product volume administered (ml) Total IV fluid infused 500 05/28/24 13:35 RETIREMENT ACTUARY.JULIOOBFabi Anesthesia Postop Eval I: Summary Notes Anesthesia Complication No 05/28/24 13:35 RETIREMENT ACTUARY.SKOBFabi Anesthesia Complication Comment: Post-operative progress note Anesthesia: Postop Eval II Evaluation Mental status: Awake and Calm Pain Level: 2 nausea: No Vomiting: No Complications Anesthesia Complication: No
--- NOTE | 2024-05-28 17:58 | PCM.POSTANE2 ---
Anesthesia Postop Eval I Sum Postop Eval Completion status Anesthesia document: Postop Eval 1 completed: Yes Anesthesia Postop Eval I Summary Anesthesia Postop Eval I Summary: Anesthesia Postop Eval I: Assessment Summary Airway patent Yes 05/28/24 13:35 RN [email or web address] Spontaneous unlabored Yes 05/28/24 13:35 RN [email or web address] respirations Mental status Awake 05/28/24 13:35 RN [email or web address] nausea No 05/28/24 13:35 RN [email or web address] Vomiting No 05/28/24 13:35 RN [email or web address] Anesthesia Postop Eval I: Fluid Summary Crystalloid volume administer 500 - 1,000 mL 05/28/24 13:35 RN [email or web address] (ml) administered in pre-op Colloids volume administered ( ml) Blood Product volume administered (ml) Total IV fluid infused 500 05/28/24 13:35 RN [email or web address] Anesthesia Postop Eval I: Summary Notes Anesthesia Complication No 05/28/24 13:35 RN [email or web address] Anesthesia Complication Comment: Post-operative progress note Anesthesia: Postop Eval II Evaluation Mental status: Awake and Calm Pain Level: 2 nausea: No Vomiting: No Complications Anesthesia Complication: No
[2024-05-28] MEDS: Cefazolin 1 GM/50 ML BAG IV (18:32)
[2024-05-28 22:43] LABS: Color, Urine Yellow (Yellow); Glucose, Dipstick Normal (Normal); Ketone-Dipstick Negative (Negative); Leukocyte Esterase-Dipstick 100 /ul (Negative); Mucous, Urine 0 SEEN /hpf (<or=2+); Nitrite-Dipstick Positive (Negative); Occult Blood-Urine 10 /ul (Negative); Protein-Dipstick 15 mg/dl (Negative); Specific Gravity, Urine 1.015 (1.002-1.030); Urine Bilirubin Dipstick Negative (Negative); Urine Clarity Clear (Clear); Urine Urobilinogen Normal (Normal)
[2024-05-28 23:05] LABS: Red Blood Cells-Urine 0-5 SEEN /hpf (0-5); Squamous Epithelial Cells - UA 5-10 SEEN /hpf (5-10); White Blood Cells 5-10 SEEN /hpf (0-5)
[2024-05-28 23:06] LABS: Bacteria 2+ /hpf (None Seen); Calcium Oxalate Crystals Ur 1+ /hpf (<or=2+)
[2024-05-29] VITALS (7 sets, daily range): BP systolic 105–147; BP diastolic 53–77; PULSE 63–95; RESP 14–18; TEMP 36.4–37.2; O2SAT 94–100
--- NOTE | 2024-05-29 00:02 | PCM.HOSP.N ---
Hospitalist Note UA notable, UCx pending, will add IV rocephin.
[2024-05-29] MEDS: Ceftriaxone 1 GM/50 ML BAG IV ×2 (00:55→21:18)
[2024-05-29] MEDS: Ketorolac 15 MG/ML Vial IV (01:02)
[2024-05-29] MEDS: oxyCODONE 5 MG Tablet PO ×2 (01:02→15:02)
[2024-05-29] MEDS: Acetaminophen 500 MG Tablet 1000 MG PO ×3 (05:45→21:18)
[2024-05-29] MEDS: Levothyroxine 150 MCG Tablet PO (05:45)
[2024-05-29] MEDS: APIXABAN 5 MG TABLET PO ×2 (05:45→21:17)
[2024-05-29 06:28] LABS: Absolute Lymphocyte Count 1.07 X10^3/uL (0.83-4.51); Absolute Neutrophil Count 7.7 X10^3/uL (2.0-7.7); Basophil# 0.01 X10^3/uL; Basophil% 0.1 % (0-1); Hemoglobin 10.6 g/dL (12.0-15.0); Lymphocyte # 1.07 X10^3/ul (0.83-4.51); Mean Corp Hgb Conc 32.1 g/dL (32-36); Mean Corpuscular Hgb 30.2 pg (27.0-32.0); Mean Platelet Vol. 8.9 fl (6.2-12.0); Monocyte# 0.94 X10^3/uL; Monocyte% 9.6 % (0-10); NRBC Flagged by Analyzer 0 % (0-5); Neutrophil # 7.73 X10^3/uL (2.7-7.7); Neutrophil % 79.1 % (47-70); Platelet Count 314 K/mm3 (150-450); RBC Distribution Width CV 13.8 % (11.6-14.6); RBC Distribution Width SD 46.8 fl (35.1-43.9); Red Blood Count 3.51 M/mm3 (4.2-5.4); White Blood Count 9.8 K/mm3 (4.4-11.0)
[2024-05-29 06:52] LABS: Anion Gap 11 (5-15); BUN 11 mg/dL (4-19); BUN/Creat Ratio 18.9 RATIO (10-20); Carbon Dioxide 25.9 mmol/L (21.0-32.0); Chloride 101 mmol/L (98-108); Creatinine, Serum 0.59 mg/dL (0.70-1.20); EST Glomerular Filtration Rate 97 (>60); Estimated Creatinine Clearance 77.72 ml/min (50-250); Glucose 120 mg/dL (70-99); Potassium 4.8 mmol/L (3.3-5.1); Sodium Level 138 mmol/L (133-145)
--- NOTE | 2024-05-29 08:37 | PN.ORTHO_ITS ---
Subjective Subjective Patient appears to be comfortable in bedside chair. Patient is not the best historian. Patient states that she does have bilateral lower leg pain. Patient states that she does not remember which leg had a previous deep vein thrombosis. Patient states that her pain is controlled at this point. Patient states that she has had a bowel movement. Patient did require a UA due to dysuria. Nursing staff was educated to hold patient's 10 AM Eliquis due to getting it around 5 AM. Patient denies any nausea, vomiting, dizziness, lightheadedness. Patient denies any shortness of breath, chest pain. Patient denies any fever, chills, signs of infection. Objective Data Objective Data Vital Signs: Vital Signs Temp Pulse Resp BP Pulse Ox O2 Del Method O2 Flow Rate 97.6 F L 75 18 147/77 H 98 Room Air 2 05/29/24 05:40 05/29/24 05:40 05/29/24 05:40 05/29/24 05:40 05/29/24 05:40 05/29/24 05:40 05/29/24 03:04 Oxygen Flow Rate (L/min) 2 Oxygen Delivery Method Room Air Weight: 95.7 kg Body Mass Index (BMI) 33.0 Intake & Output: Intake and Output for Last 24 Hours 05/27/24 05/28/24 05/29/24 23:59 23:59 23:59 Intake Total 1712 / 1712 425 / 425 Output Total 400 / 400 Balance 1312 / 1312 425 / 425 Lab / Micro Data 05/29/24 05:26 05/29/24 05:26 Labs: Laboratory Results - last 24 hr 05/28/24 08:16: POC Glucose 124 H 05/28/24 08:21: Magnesium 2.2 05/28/24 22:30: Urine Color Yellow, Urine Clarity Clear, Urine pH 6.0, Ur Specific [place] 1.015, Urine Protein 15 H, Urine Glucose (UA) Normal, Urine Ketones Negative, Urine Occult Blood 10 H, Urine Nitrite Positive H, Urine Bilirubin Negative, Urine Urobilinogen Normal, Ur Leukocyte Esterase 100 H, Urine RBC 0-5 SEEN, Urine WBC 5-10 SEEN, Ur Squamous Epith Cells 5-10 SEEN, Calcium Oxalate Crystal 1+, Urine Bacteria 2+, Urine Mucus 0 SEEN 05/29/24 05:26: WBC 9.8, RBC 3.51 L, Hgb 10.6 L, Hct 33.0 L, MCV 94.0, MCH 30.2, MCHC 32.1, RDW Std Deviation 46.8 H, RDW Coeff of Lawson 13.8, Plt Count 314, MPV 8.9, Immature Gran % (Auto) 0.200, Neut % (Auto) 79.1 H, Lymph % (Auto) 11.0 L, [place] % (Auto) 9.6, Eos % (Auto) 0.0, Baso % (Auto) 0.1, Absolute Neuts (auto) 7.7, Absolute Lymphs (auto) 1.07, Nucleated RBC % 0, Sodium 138, Potassium 4.8, Chloride 101, Carbon Dioxide 25.9, Anion Gap 11, BUN 11, Creatinine 0.59 L, Estim Creat Clear Calc 77.72, Est GFR (MDRD) Non-Af 97, BUN/Creatinine Ratio 18.9, Glucose 120 H, Calcium 9.0 Radiography Diagnostic Testing: Radiology Impression Hip/Pelvis X-Ray 05/28/24 11:30 IMPRESSION: Intraoperative fluoroscopy with spot views as above. Reading Location: [facility] Hip X-Ray 05/28/24 13:30 IMPRESSION: Moderate left hip joint degenerative changes are seen, with moderately severe left superior joint space narrowing. A right total hip prosthesis is now in place, with satisfactory alignment. No complication is seen. No fracture site is evident. Reading Location: [address] Physical Exam Narrative 1. SHERLY hose in place bilaterally. 2. SCDs in place bilaterally. 3. Dressing is clean dry and intact. 4. Right hip is soft and supple. 5. Dorsiflexion and plantarflexion are performed actively without pain or restriction. 6. Sensation intact to light touch. 7. Neurovascularly intact. 8. Patient does have bilateral calf pain to palpation. Const no apparent distress Assessment & Plan Assessment/Plan (1) Status post total hip replacement, right: PLAN: Status post right total hip replacement day 1. 1. DVT prophylaxis: Patient will be on regular preoperative dose of Eliquis, as well as wearing SHERLY hose for 2 weeks postoperatively. 2. Pain medications: Patient will be on Tylenol 1000 mg every 8 hours as well as oxycodone as needed for pain control. Primary care provider has been prescribing tramadol for pain control. Primary care provider was reach out to and stated that they would like us to manage postoperative pain medications. OARRS report was reviewed and checked in office today. The risk of abuse potential for narcotic pain medication was discussed and reviewed. Patient was advised not to drive a motor vehicle or operate heavy equipment while taking narcotic pain medication. 3. Patient was positive for MSSA so patient will be on doxycycline for 2 weeks postoperatively. Patient was educated on the increased risk of sunburn while taking doxycycline. Patient was educated on taking a probiotic while taking antibiotic. 4. Patient states that she has had a bowel movement at this time. 5. H&H: 10.6/33.0. Currently asymptomatic. At this point patient is above the threshold of 10 and we do not need to begin anemia protocol. 6. Dysuria: Patient had had previous dysuria which a urine analysis was ordered showing positive proteins, positive blood, positive nitrates, and positive leukocyte Estrace. Patient was started on IV Rocephin due to results of UA. Urine culture is pending at this point. 7. Physical therapy: Patient states that she did work with physical therapy and things went well. Patient was educated that she will continue to be weightbearing as tolerated with a walker. 8. Incentive spirometer: Patient was encouraged to use incentive spirometer every hour that they are weak for the first week to exercise lungs and decrease risk of postoperative infection. 9. Patient will follow-up per postoperative instructions. 10. Will get wound doctor involved to change Mepilex dressing into a Prevena wound VAC. Patient was educated once has wound VAC on she will use for 1 week. Patient was educated not to get the wound VAC wet. Patient is able to dispose of the wound VAC at home. 11. Due to bilateral calf pain as well as history of DVT and PE patient did receive bilateral lower extremity Doppler ultrasounds to rule out current DVT. Patient is to wear SCDs if Doppler is negative. If Doppler is positive she is not to wear SCDs on positive lower extremity. 11. Medicine is on board. Appreciate recommendations for safe and proper discharge planning. 12. Case management is on board appreciate recommendations for safe and proper discharge planning. 13 patient does have follow-up appointment scheduled for 2-week follow-up in office. 14. At this point patient does plan to go to a assisted facility. Patient did come from [facility]. Patient does have some safety concerns as well as patient's family. Patient does have history of Alzheimer's/dementia. At this point I believe it is necessary that patient stay another night due to pending urine cultures as well as pending Doppler ultrasound. Following the hospital patient will go to a assisted facility. Patient does have follow-up appointment scheduled in our office at 2 weeks. Patient will follow- up per postoperative instructions. Patient was encouraged to call with any questions, concerns, new problems.
[2024-05-29] MEDS: Famotidine 20 MG Tablet PO (09:24)
[2024-05-29] MEDS: CARBOXYMETHYLCELLULOSE SODIUM 15 ML OPHTH DROPS 2 DRP RIGHT EYE ×2 (09:24→21:18)
[2024-05-29] MEDS: Donepezil HCl 5 MG Tablet PO (09:24)
[2024-05-29] MEDS: Loratadine 10 MG Tablet PO (09:24)
[2024-05-29] MEDS: FLUoxetine 20 MG Capsule PO (09:24)
[2024-05-29] MEDS: Cholecalciferol (VIT D3) 25 MCG TABLET (1,000 UNITS) PO (09:26)
--- NOTE | 2024-05-29 09:31 | CASEMGMT ---
Met with patient to complete TYLER form. TYLER form explained to patient who voiced understanding and signed form. Original form placed in pt?s chart and copy provided to patient. Yue Grajeda, Discharge Planning Asst
--- NOTE | 2024-05-29 09:45 | CASEMGMT ---
Addendum entered by Yue Grajeda 05/29/24 12:47: [facility]. SW aware and will obtain loc. Yue Grajeda DC Planning Asst. Original Note: Discharge Planning Referral sent to [facility]. Yue Grajeda DC Planning Asst.
--- NOTE | 2024-05-29 10:31 | CASEMGMT ---
Addendum entered by Jennifer Gaines 05/29/24 16:06: SHALINI called [facility] to obtain copy of PASRR. SW completed LOC and faxed over. SW remains available to follow. SHALINI called pt sister to update on discharge plans. SW left a voicemail with tentative discharge time. SW will remain available to follow. Plan: [facility]; intermediate level of care SHELBIE Neumann Addendum entered by Jennifer Gaines 05/29/24 13:32: Social Work- SW received a call from [facility], reporting that they will be placing pt near the nurses station rather than at the end of a hallway to better monitor pt due to confusion and declined cognitive state. Pt sister was visiting in pt room. SW updated pt and pt sister; pt and pt sister agreeable. DCA advised. SHELBIE Neumann Addendum entered by Jennifer Gaines 05/29/24 11:41: Social Work- [facility] reports that they have a bed available at the end of a hallway. SHALINI called pt sister and left a voicemail to determine if there are wandering concerns that would make the room unsuitable for pt. SHALINI remains available to follow. SHELBIE Neumann Original Note: Social Work- SHALINI completed referrals to TCU and advised DCA of referral request for [facility]. TCU declines at this time. SHALINI remains available to follow. SHELBIE Neumann
[2024-05-29] MEDS: Doxycycline 100 MG CAPSULE PO ×2 (13:12→21:18)
--- NOTE | 2024-05-29 13:38 | PCM.TXEXTCAR ---
Diet Diet Order/Speech Therapy: 05/29/24 08:52 Diet: Regular - General DC O2, CPAP, BIPAP needs Home O2 Discharge instructions: No Wound(s) right hip: Wound Type: Surgical Incision Therapies Weight Bearing: Weight bearing as tolerated (with walker) Physical Therapy: Eval and Treat Occupational Therapy: Eval and Treat Problem/Diagnosis (1) Status post total hip replacement, right: Status: Acute Code(s): Z96.641 - Presence of right artificial hip joint Plan 1. Right total hip replacement due to osteoarthritis #2 hypothyroidism #3 dementia #4 long-term use of anticoagulant secondary to past history of VTE #5 history of IPMN (intraductal papillary mucous neoplasm) #6 acute cystitis #7 chronic depression Allergies/Procedures Done in Hospital Allergies morphine Allergy (Unknown, Verified 05/17/24 11:10) Other Penicillins Allergy (Unknown, Verified 05/17/24 11:10) Other Procedures: - (Right direct anterior minimally invasive total hip replacement-05/28/2024) Type of Care/Length of Stay Estimated LOS: Convalescent Care Less Than 30 days Type of Care Needed: Skilled Rehab Potential: Good Prognosis: Good Additional Orders/Day of Discharge H&P will serve as current which was dated: 05/16/24 Day of Discharge: 05/30/24 Discharge Plan Admission Admit Date/Time: 05/29/24 11:56 Primary Reason for Your Visit: Right hip osteoarthritis with right total hip replacement Attending Provider: Alexandru Holley Primary Care Provider: Vielka Jean Consulting Providers: Scott Metzger; Americo Leblanc Instructions Additional Instructions / Restrictions: SHERLY william x 2 weeks Discharge Orders/Prescriptions Prescriptions: New sennosides-docusate sodium [Stimulant Laxative Plus] 8.6-50 mg Tablet 1 tab PO DAILY Qty: 0 0RF acetaminophen 500 mg Tablet 1,000 mg PO Q8 Qty: 0 0RF doxycycline monohydrate 100 mg Capsule 100 mg PO BID Qty: 28 0RF Rx Instructions: Give for 14 days (28 doses) then discontinue oxycodone 5 mg Tablet 5 - 10 mg PO Q4H PRN PRN (Reason: Pain Score 4-10) 3 Days Qty: 12 0RF cefdinir 300 mg capsule 300 mg PO BID Qty: 10 0RF Rx Instructions: one twice a day for 5 days(10 doses) Continued Eliquis 5 mg tablet 5 mg PO BID Systane (PF) 0.4-0.3 % dropperette 2 drp RIGHT EYE BID loratadine [Allerclear] 10 mg tablet 10 mg PO DAILY cholecalciferol (vitamin D3) [Vitamin D3] 25 mcg (1,000 unit) capsule 25 mcg PO DAILY levothyroxine 150 mcg tablet 150 mcg PO DAILY fluoxetine 20 mg capsule 20 mg PO DAILY simethicone [Gas Relief (simethicone)] 125 mg capsule 125 mg PO 4X/DAY Changed donepezil 10 mg tablet 10 mg PO DAILY Qty: 1 0RF Discontinued acetaminophen 500 mg tablet 500 mg PO BID donepezil 5 mg tablet 5 mg PO DAILY tramadol 50 mg tablet 50 mg PO BID acetaminophen 325 mg capsule 325 mg PO BID PRN (Reason: pain) Referrals / Follow Up: Vielka Jean MD [Primary Care Provider] - Americo Leblanc MD [Med Staff - Active Staff] - See Referral Note (In 2 weeks, call to make appointment) Disposition Disposition (needs filled in before D/C Order can be placed): Residential Facility
--- NOTE | 2024-05-29 14:16 | CASEMGMT ---
Discharge Planning Wheelchair transport has been scheduled for 05/30 @ 2p. SW updated. Yue Grajeda DC Planning Asst.
--- NOTE | 2024-05-29 14:59 | WOUNDNOTE ---
wound photo: right anterior hip
--- NOTE | 2024-05-29 16:49 | PCM.PN.HOSP ---
Reason for Visit Reason for Visit: Diagnoses Encounter for other preprocedural examination (05/29/24) Personal history of other venous thrombosis and embolism (05/29/24) Presence of right artificial hip joint (05/29/24) Subjective Subjective Patient was seen and examined today, patient has been approved to go to a different jail which is closer to her family tomorrow. Patient is alert today and appears in no distress, patient has obvious cognitive impairment but is pleasant. Objective Data Objective Data Vital Signs: Vital Signs Temp Pulse Resp BP Pulse Ox O2 Del Method O2 Flow Rate 97.5 F L 63 18 135/57 H 94 Room Air 2 05/29/24 14:21 05/29/24 14:21 05/29/24 14:21 05/29/24 14:21 05/29/24 14:21 05/29/24 14:21 05/29/24 03:04 Oxygen Flow Rate (L/min) 2 Oxygen Delivery Method Room Air Weight: 95.7 kg Body Mass Index (BMI) 33.0 Intake & Output: Intake and Output for Last 24 Hours 05/27/24 05/28/24 05/29/24 23:59 23:59 23:59 Intake Total 1712 / 1712 779 / 779 Output Total 400 / 400 Balance 1312 / 1312 779 / 779 Lab / Micro Data 05/29/24 05:26 05/29/24 05:26 Labs: Laboratory Results - last 24 hr 05/28/24 22:30: Urine Color Yellow, Urine Clarity Clear, Urine pH 6.0, Ur Specific [place] 1.015, Urine Protein 15 H, Urine Glucose (UA) Normal, Urine Ketones Negative, Urine Occult Blood 10 H, Urine Nitrite Positive H, Urine Bilirubin Negative, Urine Urobilinogen Normal, Ur Leukocyte Esterase 100 H, Urine RBC 0-5 SEEN, Urine WBC 5-10 SEEN, Ur Squamous Epith Cells 5-10 SEEN, Calcium Oxalate Crystal 1+, Urine Bacteria 2+, Urine Mucus 0 SEEN 05/29/24 05:26: WBC 9.8, RBC 3.51 L, Hgb 10.6 L, Hct 33.0 L, MCV 94.0, MCH 30.2, MCHC 32.1, RDW Std Deviation 46.8 H, RDW Coeff of Lawson 13.8, Plt Count 314, MPV 8.9, Immature Gran % (Auto) 0.200, Neut % (Auto) 79.1 H, Lymph % (Auto) 11.0 L, [place] % (Auto) 9.6, Eos % (Auto) 0.0, Baso % (Auto) 0.1, Absolute Neuts (auto) 7.7, Absolute Lymphs (auto) 1.07, Nucleated RBC % 0, Sodium 138, Potassium 4.8, Chloride 101, Carbon Dioxide 25.9, Anion Gap 11, BUN 11, Creatinine 0.59 L, Estim Creat Clear Calc 77.72, Est GFR (MDRD) Non-Af 97, BUN/Creatinine Ratio 18.9, Glucose 120 H, Calcium 9.0 Radiography Diagnostic Testing: Radiology Impression Hip/Pelvis X-Ray 05/28/24 11:30 IMPRESSION: Intraoperative fluoroscopy with spot views as above. Reading Location: [id number] Venous Doppler Study 05/28/24 17:28 Interpretation Summary Deep veins of the lower extremities are bilaterally patent and compressible segmentally. There is no evidence of deep vein thrombosis on either side. Valvular competence appears intact within the proximal deep venous systems bilaterally. The great saphenous veins appear bilaterally patent and compressible segmentally. The left popliteal vein demonstrates vein wall thickening, which is suggestive of a prior episode of deep vein thrombosis. Ordering Physician: Americo Leblanc Referring Physician: Americo Leblanc Performed By: Julia Hicks, RDCS, RVT Physical Exam Const alert, oriented x3 and no apparent distress Constitutional Narrative: Patient has moderate cognitive impairment General Appearance: cooperative, well kempt and well developed Orientation / Consciousness: awake, oriented to person and oriented to place HEENT normocephalic, head/scalp atraumatic and moist oral mucous membranes Eyes PERRL, EOMs intact bilaterally and conjunctivae normal Neck supple, no JVD, thyroid normal and no carotid bruits General: trachea midline Resp normal respiratory effort, no retractions, no use of accessory muscles and clear to auscultation bilaterally Auscultation: Negative for rales, rhonchi or wheezes Cardio regular rate, regular rhythm, S1 normal heart sound, S2 normal heart sound, no murmurs, no rub and no gallops GI normal to inspection, nondistended, normoactive bowel sounds, soft to palpation, non-tender and non-distended Extremity no clubbing, cyanosis or edema Skin no rashes or lesions noted General Skin Exam: no breakdown Neuro CN's II-XII intact bilaterally, moves all extremities, no focal motor deficits and no sensory deficits noted Neuro Narrative: Patient has cognitive impairment Sensorium / Orientation: awake, alert, oriented to person and oriented to place Speech: speech normal Psych Psych Narrative: Patient has cognitive impairment Assessment & Plan Assessment/Plan (1) Status post total hip replacement, right: PLAN: Plan 1. Right total hip replacement due to osteoarthritis-patient will continue to see PT and OT, plan is for the patient to go to a nursing facility tomorrow #2 hypothyroidism-continue Synthroid #3 dementia-complicates care, management, recovery, and prognosis, patient is on Aricept, I have elected to increase the dosage to 10 mg nightly #4 long-term use of anticoagulant secondary to past history of VTE patient will resume her Eliquis #5 history of IPMN (intraductal papillary mucous neoplasm)-patient should follow-up as an outpatient regarding this #6 acute cystitis-continue Rocephin for now, patient can be transitioned to oral antibiotics starting 05/31/2024 #7 chronic depression-patien should continue Prozac Total clinical time spent by myself addressing the patient's medical issues, reviewing all of her data, and collaborating with patient's care team: 50 minutes Charges/Coding Visit Charges Inpatient E&M: [id number] [facility] Hosp L3
--- NOTE | 2024-05-29 17:04 | NURSING ---
Pt sister called and wanted an update, however she was not in the chart and the other pt sister who was visiting at the time had to give me her name and number to call her back since she did not leave this info when she called early today. I tried to call her back and there was no way to leave a voicemail. Sister's name is Asha James [phone].
[2024-05-29] MEDS: 0.9% Saline Lock 10 ML Syringe IV (21:19)
[2024-05-30 02:00] VITALS: BP 147/69; PULSE 87; RESP 16; TEMP 36.6; O2SAT 95
[2024-05-30] MEDS: Levothyroxine 150 MCG Tablet PO (05:42)
[2024-05-30] MEDS: Acetaminophen 500 MG Tablet 1000 MG PO (05:42)
--- NOTE | 2024-05-30 07:24 | PN.ORTHO_ITS ---
Subjective Subjective Patient is lying comfortably in bed. Patient states that her pain is still adequately controlled. Patient states that she has had a bowel movement. Patient states that she has been working with physical therapy and physical therapy has went well. Patient denies any nausea, vomiting, dizziness. Patient denies any lightheadedness. Patient denies any shortness of breath, chest pain, calf pain. Patient denies any fevers, chills, signs of infection. Patient denies any adverse events overnight. Objective Data Objective Data Vital Signs: Vital Signs Temp Pulse Resp BP Pulse Ox O2 Del Method O2 Flow Rate 98 F 87 16 147/69 H 95 Room Air 2 05/30/24 02:00 05/30/24 02:00 05/30/24 02:00 05/30/24 02:00 05/30/24 02:00 05/30/24 02:00 05/29/24 03:04 Oxygen Flow Rate (L/min) 2 Oxygen Delivery Method Room Air Weight: 95.7 kg Body Mass Index (BMI) 33.0 Intake & Output: Intake and Output for Last 24 Hours 05/28/24 05/29/24 05/30/24 23:59 23:59 23:59 Intake Total 1712 / 1712 829 / 829 Output Total 400 / 400 Balance 1312 / 1312 829 / 829 Lab / Micro Data 05/29/24 05:26 05/29/24 05:26 Radiography Diagnostic Testing: Radiology Impression Venous Doppler Study 05/28/24 17:28 Interpretation Summary Deep veins of the lower extremities are bilaterally patent and compressible segmentally. There is no evidence of deep vein thrombosis on either side. Valvular competence appears intact within the proximal deep venous systems bilaterally. The great saphenous veins appear bilaterally patent and compressible segmentally. The left popliteal vein demonstrates vein wall thickening, which is suggestive of a prior episode of deep vein thrombosis. Ordering Physician: Americo Leblanc Referring Physician: Americo Leblanc Performed By: Julia Hicks, RDCS, RVT Physical Exam Narrative 1. SHERLY hose in place bilaterally. 2. SCDs in place bilaterally. 3. Prevena wound VAC in place with minimal condensation in the tubing. 4. Right hip is soft and supple. 5. Dorsiflexion and plantarflexion are performed actively without pain or restriction. 6. Sensation intact to light touch. 7. Neurovascularly intact. 8. Patient has right calf soreness with palpation. Patient has been negative for DVT. 9. Left calf is without tenderness to palpation. Const alert, oriented x3 and no apparent distress Assessment & Plan Assessment/Plan (1) Status post total hip replacement, right: PLAN: Status post right total hip replacement day 2. 1. DVT prophylaxis: Patient will be on regular preoperative dose of Eliquis, as well as wearing SHERLY hose for 2 weeks postoperatively. 2. Pain medications: Patient will be on Tylenol 1000 mg every 8 hours as well as oxycodone as needed for pain control. Primary care provider has been prescribing tramadol for pain control. Primary care provider was reach out to and stated that they would like us to manage postoperative pain medications. OAR[place] report was reviewed and checked in office today. The risk of abuse potential for narcotic pain medication was discussed and reviewed. Patient was advised not to drive a motor vehicle or operate heavy equipment while taking narcotic pain medication. 3. Patient was positive for MSSA so patient will be on doxycycline for 2 weeks postoperatively. Patient was educated on the increased risk of sunburn while taking doxycycline. Patient was educated on taking a probiotic while taking antibiotic. 4. Patient states that she has had a bowel movement at this time. 5. H&H: 10.0/30.8. Currently asymptomatic. Patient is currently at the threshold of 10 so we will begin anemia protocol with ferrous sulfate and folic acid. Patient will be sent with a outpatient lab slip and was recommended to follow-up with primary care provider in 2 weeks for labs and follow-up. 6. Dysuria: Patient had had previous dysuria which a urine analysis was ordered showing positive proteins, positive blood, positive nitrates, and positive leukocyte Estrace. Patient was started on IV Rocephin due to results of UA. Urine culture is pending at this point. 7. Physical therapy: Patient states that she did work with physical therapy and things went well. Patient was educated that she will continue to be weightbearing as tolerated with a walker. Patient was educated on anterior hip precautions. 8. Incentive spirometer: Patient was encouraged to use incentive spirometer every hour that they are weak for the first week to exercise lungs and decrease risk of postoperative infection. 9. Patient will follow-up per postoperative instructions. 10. Prevena wound VAC was placed yesterday. Patient was educated that her wound VAC will be on for 1 week. Patient was educated she is able to taper back off on 06/05/2024. Patient was educated while has wound VAC on she will have to sponge bathe due to not being able to get the wound VAC wet. 11. Patient's Doppler ultrasound of bilateral extremities was negative yesterday. Patient's SCDs were replaced following negative Doppler ultrasound results. 11. Medicine is on board. Appreciate recommendations for safe and proper discharge planning. 12. Case management is on board appreciate recommendations for safe and proper discharge planning. 13 patient does have follow-up appointment scheduled for 2-week follow-up in office. 14. Patient is okay for discharge as long as remains medically stable, does well physical therapy, and pain maintains adequately controlled. 15. Disposition: At this time patient does plan to go to a pen[facility]iary facility closer to her family. Patient has gotten acceptance to nursing facility that is close to her family members. Due to patient's history of Alzheimer's and early dementia patient's family thinks that is best for her to be placed in penitentiary facility. Patient will have a follow-up appointment scheduled at our office in 2 weeks. Patient is to follow-up per postoperative instructions. Patient is not to get Prevena wound VAC wet. Patient will be wearing Prevena wound VAC for 1 week. Patient's medications were sent to patient's pharmacy of choice by hospitalist. Patient was encouraged to call with any questions, concerns, new problems. All questions were answered best my ability.
[2024-05-30 07:27] LABS: Hematocrit 30.8 % (37-47); Mean Corp Hgb Conc 32.5 g/dL (32-36); Mean Corpuscular Hgb 30.2 pg (27.0-32.0); Mean Corpuscular Volume 93.1 fL (81-99); Mean Platelet Vol. 8.9 fl (6.2-12.0); Platelet Count 292 K/mm3 (150-450); RBC Distribution Width CV 14.4 % (11.6-14.6); RBC Distribution Width SD 49.1 fl (35.1-43.9); Red Blood Count 3.31 M/mm3 (4.2-5.4); White Blood Count 8.2 K/mm3 (4.4-11.0)
[2024-05-30 07:45] VITALS: O2SAT 96
[2024-05-30 08:00] VITALS: BP 122/70; PULSE 90; RESP 14; TEMP 37.6; O2SAT 94
[2024-05-30 08:11] VITALS: RESP 14; O2SAT 94
[2024-05-30] MEDS: Cholecalciferol (VIT D3) 25 MCG TABLET (1,000 UNITS) PO (08:20)
[2024-05-30] MEDS: FLUoxetine 20 MG Capsule PO (08:20)
[2024-05-30] MEDS: Loratadine 10 MG Tablet PO (08:20)
[2024-05-30] MEDS: Senna/Docusate Sodium 1 Tablet 2 TABLET PO (08:20)
[2024-05-30] MEDS: Donepezil HCl 5 MG Tablet PO (08:20)
[2024-05-30] MEDS: APIXABAN 5 MG TABLET PO (08:20)
[2024-05-30] MEDS: Famotidine 20 MG Tablet PO (08:20)
[2024-05-30] MEDS: Doxycycline 100 MG CAPSULE PO (08:20)
[2024-05-30] MEDS: CARBOXYMETHYLCELLULOSE SODIUM 15 ML OPHTH DROPS 2 DRP RIGHT EYE (08:21)
[2024-05-30] MEDS: Folic Acid 1 MG Tablet PO (08:25)
--- NOTE | 2024-05-30 09:11 | PN.HOSP_ITS ---
Reason for Visit Reason for Visit: Diagnoses Anemia, unspecified (05/29/24) Encounter for other preprocedural examination (05/29/24) Personal history of other venous thrombosis and embolism (05/29/24) Presence of right artificial hip joint (05/29/24) Subjective Subjective Patient was seen and examined today, she appears in no distress. We have received approval for her to go to an extended care facility. Objective Data Objective Data Vital Signs: Vital Signs Temp Pulse Resp BP Pulse Ox O2 Del Method O2 Flow Rate 99.6 F H 90 14 122/70 H 94 Room Air 2 05/30/24 08:00 05/30/24 08:00 05/30/24 08:11 05/30/24 08:00 05/30/24 08:11 05/30/24 08:16 05/29/24 03:04 Oxygen Flow Rate (L/min) 2 Oxygen Delivery Method Room Air Weight: 95.7 kg Body Mass Index (BMI) 33.0 Intake & Output: Intake and Output for Last 24 Hours 05/28/24 05/29/24 05/30/24 23:59 23:59 23:59 Intake Total 1712 / 1712 829 / 829 Output Total 400 / 400 Balance 1312 / 1312 829 / 829 Lab / Micro Data 05/30/24 06:47 05/29/24 05:26 Labs: Laboratory Results - last 24 hr 05/30/24 06:47: WBC 8.2, RBC 3.31 L, Hgb 10.0 L, Hct 30.8 L, MCV 93.1, MCH 30.2, MCHC 32.5, RDW Std Deviation 49.1 H, RDW Coeff of Lawson 14.4, Plt Count 292, MPV 8.9 Radiography Diagnostic Testing: Radiology Impression Venous Doppler Study 05/28/24 17:28 Interpretation Summary Deep veins of the lower extremities are bilaterally patent and compressible segmentally. There is no evidence of deep vein thrombosis on either side. Valvular competence appears intact within the proximal deep venous systems bilaterally. The great saphenous veins appear bilaterally patent and compressible segmentally. The left popliteal vein demonstrates vein wall thickening, which is suggestive of a prior episode of deep vein thrombosis. Ordering Physician: Americo Leblanc Referring Physician: Americo Leblanc Performed By: Julia Hicks, RDCS, RVT Physical Exam Narrative alert, oriented x3 and no apparent distress Constitutional Narrative: Patient has moderate cognitive impairment General Appearance: cooperative, well kempt and well developed Orientation / Consciousness: awake, oriented to person and oriented to place HEENT normocephalic, head/scalp atraumatic and moist oral mucous membranes Eyes PERRL, EOMs intact bilaterally and conjunctivae normal Neck supple, no JVD, thyroid normal and no carotid bruits General: trachea midline Resp normal respiratory effort, no retractions, no use of accessory muscles and clear to auscultation bilaterally Auscultation: Negative for rales, rhonchi or wheezes Cardio regular rate, regular rhythm, S1 normal heart sound, S2 normal heart sound, no murmurs, no rub and no gallops GI normal to inspection, nondistended, normoactive bowel sounds, soft to palpation, non-tender and non-distended Extremity no clubbing, cyanosis or edema Skin no rashes or lesions noted General Skin Exam: no breakdown Neuro CN's II-XII intact bilaterally, moves all extremities, no focal motor deficits and no sensory deficits noted Neuro Narrative: Patient has cognitive impairment Sensorium / Orientation: awake, alert, oriented to person and oriented to place Speech: speech normal Psych Psych Narrative: Patient has cognitive impairment Assessment & Plan Assessment/Plan (1) Status post total hip replacement, right: PLAN: Plan 1. Right total hip replacement due to osteoarthritis-patient will continue to see PT and OT, patient is being transferred to an extended care facility for inpatient rehab services today, patient appears to be medically stable at this time #2 hypothyroidism-continue Synthroid #3 dementia-complicates care, management, recovery, and prognosis, patient is on Aricept, patient's dosage was increased to 10 mg daily #4 long-term use of anticoagulant secondary to past history of VTE patient will resume her Eliquis #5 history of IPMN (intraductal papillary mucous neoplasm)-patient should follow-up as an outpatient regarding this #6 acute cystitis-continue Rocephin for now, patient can be transitioned to oral antibiotics starting 05/31/2024 #7 chronic depression-patien should continue Prozac #8 acute anemia secondary to right total hip replacement-I talked briefly with orthopedics today they request that the patient be put on ferrous sulfate 325 mg twice daily, I have added this to her intermediate med sheet Total clinical time spent by myself addressing the patient's medical issues, reviewing all of her data, and collaborating with patient's care team: 35 minutes Charges/Coding Visit Charges Inpatient E&M: 85909 Subs Hosp L2
--- NOTE | 2024-05-30 10:05 | PHA.DC.MR.R ---
Pharmacy [place] Med Reconciliation Pharmacy Service has performed discharge medication reconciliation for this patient. The patient's discharge medication list was reviewed for discrepancies and discrepancies were resolved. Medications at Discharge Home Medications apixaban 5 mg tablet (Eliquis) 5 mg PO BID 01/05/24 cholecalciferol (vitamin D3) 25 mcg (1,000 unit) capsule (Vitamin D3) 25 mcg PO DAILY 01/05/24 loratadine 10 mg tablet (Allerclear) 10 mg PO DAILY 01/05/24 peg 400-propylene glycol (PF) 0.4 %-0.3 % eye drops in a dropperette (Systane (PF)) 2 drp RIGHT EYE BID 01/05/24 levothyroxine 150 mcg tablet 150 mcg PO DAILY 03/01/24 fluoxetine 20 mg capsule 20 mg PO DAILY 05/17/24 simethicone 125 mg capsule (Gas Relief (simethicone)) 125 mg PO 4X/DAY 05/17/24 acetaminophen 500 mg tablet 1,000 mg (2 x 500 mg) PO Q8 #0 tabs 05/29/24 cefdinir 300 mg capsule 300 mg PO BID #10 caps 05/29/24 donepezil 10 mg tablet 10 mg PO DAILY #1 TAB 05/29/24 doxycycline monohydrate 100 mg capsule 100 mg PO BID #28 caps 05/29/24 oxycodone 5 mg tablet 5 - 10 mg (1 - 2 x 5 mg) PO Q4H PRN PRN Pain Score 4-10 3 days #12 tabs 05/29/24 sennosides 8.6 mg-docusate sodium 50 mg tablet (Stimulant Laxative Plus) 1 tab PO DAILY #0 tabs 05/29/24
--- NOTE | 2024-05-30 10:37 | CASEMGMT ---
Discharge Planning Per Bao Davis, pt was a long term care phlebotomist pt under her [facility]. She did not have any recent qualifying hospital stays. She transferred to [facility] from [facility]. SW updated. Yue Grajeda DC Planning Asst.
--- NOTE | 2024-05-30 11:05 | CASEMGMT ---
Social Work SHALINI received message from pt's sister Leticia that she is unhappy with the room that has been assigned at [facility]. DC appeals assistant spoke with [place] admission coordinator and room has been changed. SHALINI notified Leticia and also updated that pt will be going to [facility] under Medicaid and does not meet Medicare guidelines. Therapy has been ordered for pt and pt will receive it under Medicaid benefit. Leticia expressing understanding. SHALINI obtained Level of Care results. DC appeals assistant updated and to complete discharge. Disposition: [facility], intermediate level of care SHELBIE Lawrence
--- NOTE | 2024-05-30 11:39 | CASEMGMT ---
Discharge Planning Discharge orders, signed med list, and transport time sent to [facility]. Physicians will transport pt around 11:45-12:00p. Nursing, SW, pt, and her sister (Beckie) updated. Yue Grajeda DC Planning Asst.
--- NOTE | 2024-05-30 11:43 | NURSING ---
Tried to call Matthew Butts 2 times and was on hold over 8 min. Will try again at later ponit.
[2024-05-30] MEDS: Ferrous Sulfate 325 MG Tablet PO (11:47)
--- NOTE | 2024-05-30 12:04 | NURSING ---
Called report to Irina fletcher nurse at [facility] [phone]. Pt to be picked up anytime.
[2024-05-30 12:05] VITALS: BP 126/60; PULSE 82; RESP 18; TEMP 37; O2SAT 98
--- NOTE | 2024-05-30 16:10 | NURSING ---
All documentation by nursing agency manager Willow Rosario reviewed by nursing agency manager Maddie RUSSELLN, RN.
== END 2024-05-30 12:38 | disposition skilled nursing facility (03) | DRG 470 ==
LOC: SDC 15:49 → AC 15:49 → ACINP 15:49 → SDC 15:49 → MS3 15:49
PROVIDERS: Anesthesiology; Hospitalist; Admitting Provider Specialist; PCP Student in an Organized Health Care Education/Training Program; Referring Provider Specialist; Visit Provider Internal Medicine
PROC: 0SR902Z Replacement of Right Hip Joint with Metal on Polyethylene Synthetic Substitute, Open Approach (ICD-10-PCS; CPT 27284; principal; 2024-05-28 09:35)
DX: M16.11 Unilateral primary osteoarthritis, right hip (principal); F02.83 Dementia in other diseases classified elsewhere, unspecified severity, with mood disturbance; F02.84 Dementia in other diseases classified elsewhere, unspecified severity, with anxiety; N30.00 Acute cystitis without hematuria; B95.61 Methicillin susceptible Staphylococcus aureus infection as the cause of diseases classified elsewhere; J44.9 Chronic obstructive pulmonary disease, unspecified; E03.9 Hypothyroidism, unspecified; I10 Essential (primary) hypertension; F32.A Depression, unspecified; E66.811 Obesity, class 1; G30.9 Alzheimer's disease, unspecified; E78.5 Hyperlipidemia, unspecified; J30.2 Other seasonal allergic rhinitis; F41.9 Anxiety disorder, unspecified; D13.6 Benign neoplasm of pancreas; D50.9 Iron deficiency anemia, unspecified; Z79.01 Long term (current) use of anticoagulants; R01.1 Cardiac murmur, unspecified; Z79.890 Hormone replacement therapy; Z68.33 Body mass index [BMI] 33.0-33.9, adult; Z86.718 Personal history of other venous thrombosis and embolism; Z79.899 Other long term (current) drug therapy; Z99.89 Dependence on other enabling machines and devices; Z86.19 Personal history of other infectious and parasitic diseases; Z88.1 Allergy status to other antibiotic agents; Z88.5 Allergy status to narcotic agent
CPT/HCPCS: 36415; 73502; 76000; 80048; 81001; 82962; 83735; 85025; 85027; 87086; 88305; 88311; 93970; 94640; 94668; 94762; 97162; 97166; 97535; C1776; A4216; J3475